=== PATIENT | female | born 1955 | race Hispanic/Latino ===

== ENCOUNTER 2024-03-07 11:21 | Emergency (ER) | payer MEDICARE ==
[~2024-03-07] VITALS: Ht 157.5 cm; Wt 66.7 kg
[2024-03-07 11:26] VITALS: RESP 18
[2024-03-07] MEDS: IBUPROFEN 400 MG TAB PO ONE (12:44)
[2024-03-07 14:11] VITALS: PULSE 71; TEMP 98.2; O2SAT 98
== END 2024-03-07 14:11 | disposition home or self-care (01) ==
LOC: FSED 11:30
DX: S43.492A Other sprain of left shoulder joint, initial encounter (principal); S40.012A Contusion of left shoulder, initial encounter; W01.0XXA Fall on same level from slipping, tripping and stumbling without subsequent striking against object, initial encounter; Y93.01 Activity, walking, marching and hiking; Y92.512 Supermarket, store or market as the place of occurrence of the external cause
CPT/HCPCS: 99284